=== PATIENT | female | born 1940 | race Caucasian/White ===

== ENCOUNTER → 2019-02-07 | Outpatient (CLI) | payer OTHER ==
[~2019-02-07] MED LIST: REGADENOSON 0.4 MG/5 ML DISP.SYRIN. IV ONE
--- NOTE | 2019-02-07 08:52 | PCVCIMAG ---
APPROVED REPORT Study performed: 02/07/2019 07:43:15 EXAM: Comprehensive 2D, Doppler, and color-flow Echocardiogram Patient Location: Echo lab Status: routine BSA: 1.95 HR: 74 bpmBP: 126/64 mmHg Rhythm: NSR Other Information Study Quality: Adequate Risk Factors: Cardiac Risk Factors: HTN Indications Dyspnea Tachycardia 2D Dimensions IVSd: 12.59 (7-11mm) LVDd: 38.39 mm PWd: 10.23 (7-11mm) LVDs: 24.04 (25-40mm) Left Atrium: 37.74 (27-40mm) Aortic Root: 29.38 mm LV Single Plane 4CH: 53.94 % LV Single Plane 2CH: 56.90 % Biplane EF: 56.7 % Volumes Left Atrial Volume (Systole) Single Plane 4CH: 69.05 mLSingle Plane 2CH: 67.47 mL LA ESV Index: 36.00 mL/m2 Aortic Valve AoV Peak Humble.: 1.52 m/s AO Peak Gr.: 9.22 mmHgLVOT Max P.70 mmHg LVOT Max V: 0.96 m/s AI Vmax: 4.12 m/s AI Reeves: 3.02 m/s2 AI PHT: 395.65 ms Mitral Valve E/A Ratio: 0.7 MV Decel. Time: 275.27 ms MV E Max Humble.: 0.42 m/s MV A Humble.: 0.57 m/s IVRT: 100.35 ms Pulmonary Valve PV Peak Humble.: 0.91 m/sPV Peak Gr.: 3.29 mmHg Pulmonary Vein P Vein S: 0.31 m/sP Vein A: 0.38 m/s P Vein D: 0.43 m/sP Vein A Dur.: 145.3 msec P Vein S/D Ratio: 0.72 Tricuspid Valve TR Peak Humble.: 2.52 m/s TR Peak Gr.: 25.43 mmHg Left Ventricle The left ventricle is normal size. There is normal LV segmental wall motion. Borderline concentric left ventricular hypertrophy. Left ventricular systolic function is normal. The left ventricular ejection fraction is within the normal range. LVEF is 55-60%. Mild diastolic dysfunction is present (impaired relaxation pattern). Right Ventricle The right ventricle is normal size. The right ventricular systolic function is normal. Atria Left atrium is mildly dilated. The right atrium size is normal. Aortic Valve The aortic valve is normal in structure. Mild aortic regurgitation. There is no aortic valvular stenosis. Mitral Valve The mitral valve is normal in structure. No mitral regurgitation. No evidence of mitral valve stenosis. Tricuspid Valve The tricuspid valve is normal in structure. Mild tricuspid regurgitation with PAP of 32 mmHg. Pulmonic Valve The pulmonary valve is normal in structure. Mild pulmonic regurgitation. Great Vessels The aortic root is normal in size. IVC is normal in size and collapses >50% with inspiration. Pericardium There is no pericardial effusion. There is no pleural effusion. <Conclusion> Left ventricular systolic function is normal. There is normal LV segmental wall motion. LVEF is 55-60%. Mild diastolic dysfunction The aortic valve is normal in structure. Mild aortic regurgitation, no stenosis The mitral valve is normal in structure. No mitral regurgitation. Mild tricuspid regurgitation with pulmonary artery pressure of 32 mmHg. There is no pericardial effusion.
--- NOTE | 2019-02-07 14:45 | PCVCIMAG ---
APPROVED REPORT Imaging Protocol: Rest Tc-99m/Stress Tc-99m 1 day Study performed: 02/07/2019 09:11:55 Indication: Dyspnea, Near Syncope, Palpitations, Tachycardia Patient Location: Out-Patient Stress Nurse: Xenia Sweet RN, Marylu Thornton RN CO Tech:DINORAH Vanegas Ht: 5 ft 3 in Wt: 203 lbs BSA: 1.95 m2 HR: 64 bpm BP: 136/62 mmHg BMI: 35.9 Rhythm: Normal Sinus Rhythm Medical History Medical History: Hyperlipidemia, HTN, Former Smoker Medications: HCTZ, Lisinopril, Pravachol Allergies: No known drug allergies Cardiac Risk Factors: Age, FHX of CAD Pretest Chest Pain Characteristics: No chest pain Exercise History: Sedentary Physical Disabilities: Bad shoulder Resting Data Rest SPECT myocardial perfusion imaging was performed in supine position 45 minutes following the intravenous injection of 8.9 mCi of Tc-99m Sestamibi. Time of rest injection: 0900 Date: 02/07/2019 Administration Route: IV Administration Site: Left Hand Pharmacologic Stress Pharmacologic stress test was performed by injecting Regadenoson 0.4 mg IV push over 10-15 seconds immediately followed by the intravenous injection of 32.1 mCi of Tc-99m Sestamibi. Time of stress injection: 1015 Date: 02/07/2019 Administration Route: IV Administration Site: Left Hand Gated Stress SPECT was performed 45 minutes after stress injection. The images were gated to evaluate regional wall motion and calculate left ventricular ejection fraction. Stress Test Details Stress Test: Pharmacologic stress testing performed using 0.4 mg of regadenoson per 5 mL given IV over 10 seconds. Reason for pharmacologic stress test: physical limitation. HRMax Heart Rate (APMHR): 141 bpm Resting HR: 64 bpmTarget HR (85% APMHR): 119 bpm Max HR Achieved: 95 bpm % of APMHR: 67 Recovery HR: 83 bpm BP Resting BP: 136/62 mmHg Max BP: 142/65 mmHg Recovery BP: 141/65 mmHg ECG Resting ECG: Normal Sinus Rhythm Stress ECG: Sinus Rhythm ST Change: None Maximum ST Deviation: 0 mm Arrhythmia: None Recovery ECG: Sinus Rhythm Recovery ST Change: Normal Recovery ST Deviation: 0 mm Clinical Reason for Termination: Completed protocol Stress Symptoms: Abdominal discomfort, Nausea, Dyspnea Symptoms resolved with caffeine. Stress ECG Conclusion ECG: Non-ischemic Clinical: Non-ischemic Study Quality Study: Good Study Data Post stress, the left ventricular ejection was 82%.. SSS: 0 SRS: 6 SDS: 0 TID = 0.86. Perfusion No evidence of stress induced ischemia or prior myocardial infarction. Wall Motion Normal left ventricular size and function with no regional wall motion abnormalities. Nuclear Conclusion No evidence of stress induced ischemia or prior myocardial infarction. Normal left ventricular size and function with no regional wall motion abnormalities. Post stress, the left ventricular ejection was 82%. No prior study available for comparison. Interpreted by: Timothy Blair MD Electronically Approved: 02/07/2019 14:11:47 <Conclusion> ECG: Non-ischemic Clinical: Non-ischemic
== END | disposition home or self-care (01) ==
LOC: PCVCIMAG 08:46
PROVIDERS: ATTEND Internal Medicine
DX: I08.2 Rheumatic disorders of both aortic and tricuspid valves (principal); E78.5 Hyperlipidemia, unspecified; I10 Essential (primary) hypertension
CPT/HCPCS: 78452; 93017; 93306; A9500; J2785